=== PATIENT | male | born 1940 | race Asian ===

== ENCOUNTER 2016-12-25 08:16 | Outpatient (CLI) | payer MEDICARE ==
[2016-12-25 08:45] LABS: #Basophils 0.1 thou/uL (0.0-0.2); #Eosinphils 0.3 thou/uL (0.0-0.7); #Lymphocytes 2.7 thou/uL (1.20-3.40); #Monocytes 0.5 thou/uL (0.11-0.59); #Neutrophils 3.7 thou/uL (1.40-6.50); %Basophils 0.9 % (0.0-1.0); %Eosinophils 3.9 % (0.0-10.0); %Monocytes 6.4 % (0.0-10.0); Hematocrit 45.3 % (42.0-52.0); White Blood Cell (WBC) Count 7.2 thou/uL (4.8-10.8)
[2016-12-25 09:54] LABS: ALT (SGPT) 27 U/L (0-55); AST (SGOT) 30 U/L (5-34); Alkaline Phosphatase 66 U/L (40-150); Anion Gap 13 mmol/L (10-20); BUN (Urea Nitrogen) 20 mg/dL (8.4-25.7); Bilirubin, Total 0.4 mg/dL (0.2-1.2); Calc. Creatinine Clearance 0 mL/min (70-130); Calcium 9.5 mg/dL (7.8-10.44); Carbon Dioxide 27 mmol/L (23-31); Chloride 108 mmol/L (98-107); Estimated GFR-MDRD 88; Globulin 3.9 g/dL (2.4-3.5); Protein, Total 8.1 g/dL (5.8-8.1)
== END 2016-12-25 08:17 | disposition home or self-care (01) ==
LOC: BURLAB 08:16
PROVIDERS: ATTEND Family Medicine
DX: D64.9 Anemia, unspecified (principal); I10 Essential (primary) hypertension; E03.9 Hypothyroidism, unspecified
CPT/HCPCS: 36415; 80053; 84443; 85025

== ENCOUNTER 2017-02-03 12:21 | Outpatient (CLI) | payer MEDICARE | END 2017-02-03 12:22 | disposition home or self-care (01) | LOC: BURLAB 12:21 | PROVIDERS: ATTEND Specialist | DX: Z51.81 Encounter for therapeutic drug level monitoring (principal); Z79.899 Other long term (current) drug therapy; Z87.19 Personal history of other diseases of the digestive system | CPT/HCPCS: 36415; 84443 ==